=== PATIENT | female | born 1935 | race Asian ===

== ENCOUNTER 2016-12-14 15:16 | Inpatient (IN) | payer OTHER ==
[~2016-12-14] VITALS: Ht 154.9 cm; Wt 60.3 kg
[~2016-12-14 15:16] MED LIST: AMLODIPINE BESYL5 M1 PO; ATORVASTATIN CA40 M1 PO; BG MC; GLU500 PO; PLA75 PO
[2016-12-14 17:05] LABS: BASOPHIL % 0.4 % (0-2); PLATELET COUNT 275 x10^3mcL (130-400)
[2016-12-14 17:06] LABS: RED CELL DISTRIBUTION WIDTH 15.6 % (11.5-14.5)
[2016-12-14 17:17] LABS: CALCIUM 8.7 mg/dL (8.5-10.1); CARBON DIOXIDE 29.2 mmol/L (21-32); CHLORIDE SERUM 102 mmol/L (98-107); CREATININE SERUM 0.8 mg/dL (0.6-1.0); GLUCOSE SERUM 115 mg/dL (74-106); POTASSIUM SERUM 3.4 mmol/L (3.5-5.1); SODIUM SERUM 140 mmol/L (136-145)
[2016-12-14 17:21] LABS: ALBUMIN 3.7 g/dL (3.4-5.0); ALKALINE PHOSPHATASE 65 U/L (46-116); ALT/SGPT 27 U/L (14-59); AST/SGOT 25 U/L (15-37); BILIRUBIN TOTAL 0.6 mg/dL (0.20-1.00); LIPASE 262 IU/L (73-393); TOTAL PROTEIN, SERUM 8.1 g/dL (6.4-8.2)
[2016-12-14] MEDS ORDERED: MULTIVITAMIN1 SGL PO (18:40)
[2016-12-14] MEDS ORDERED: NIASPAN500 MG PO (18:41)
[2016-12-14] MEDS ORDERED: CALCIUM 600MG+D1 TAB PO (18:41)
[2016-12-14] MEDS ORDERED: LOVAZA1 G1 PO (18:41)
[2016-12-14 19:30] VITALS: BP 172/92
[2016-12-14 19:30] LABS: MAGNESIUM 2.3 mg/dL (1.8-2.4); PHOSPHOROUS 3.1 mg/dL (2.5-4.9)
[2016-12-14 19:55] LABS: FREE T4 0.95 ng/dL (0.76-1.46); FREE THYROXINE INDEX 3.2 ug/dL (1.4-4.5); T4(THYROXINE) 9.6 ug/dL (4.7-13.3)
[2016-12-14 21:47] VITALS: BP 186/88
[2016-12-14 23:28] VITALS: BP 147/74
[2016-12-15 04:50] VITALS: BP 112/89
[2016-12-15 06:31] LABS: BASOPHIL % 0.5 % (0-2); PLATELET COUNT 253 x10^3mcL (130-400)
[2016-12-15 06:37] LABS: RED CELL DISTRIBUTION WIDTH 15.4 % (11.5-14.5)
[2016-12-15 06:49] LABS: CALCIUM 8.5 mg/dL (8.5-10.1); CARBON DIOXIDE 29.4 mmol/L (21-32); CHLORIDE SERUM 106 mmol/L (98-107); CREATININE SERUM 0.7 mg/dL (0.6-1.0); GLUCOSE SERUM 96 mg/dL (74-106); POTASSIUM SERUM 3.5 mmol/L (3.5-5.1); SODIUM SERUM 142 mmol/L (136-145)
[2016-12-15 08:00] VITALS: BP 164/77
[2016-12-15 11:37] LABS: microscopic required? NO
[2016-12-15 11:43] LABS: urine erythrocyte NEGATIVE (NEGATIVE)
[2016-12-15 12:06] VITALS: BP 154/68
[2016-12-15 19:30] VITALS: BP 144/54
[2016-12-16 05:33] VITALS: BP 155/74
[2016-12-16 06:19] LABS: BASOPHIL % 0.4 % (0-2); PLATELET COUNT 249 x10^3mcL (130-400)
[2016-12-16 06:35] LABS: RED CELL DISTRIBUTION WIDTH 15.6 % (11.5-14.5)
[2016-12-16 06:50] LABS: CARBON DIOXIDE 27.2 mmol/L (21-32); CHLORIDE SERUM 111 mmol/L (98-107); CREATININE SERUM 0.9 mg/dL (0.6-1.0); GLUCOSE SERUM 101 mg/dL (74-106); POTASSIUM SERUM 3.8 mmol/L (3.5-5.1); SODIUM SERUM 148 mmol/L (136-145)
[2016-12-16 06:51] LABS: CALCIUM 8.5 mg/dL (8.5-10.1)
[2016-12-16 09:38] VITALS: BP 145/71
[2016-12-16 14:06] VITALS: BP 135/72
[2016-12-16 16:46] VITALS: BP 116/73
[2016-12-16 21:10] VITALS: BP 136/69
[2016-12-17 06:05] VITALS: BP 144/61
[2016-12-17 06:59] LABS: CALCIUM 8.4 mg/dL (8.5-10.1); CARBON DIOXIDE 24.3 mmol/L (21-32); CHLORIDE SERUM 108 mmol/L (98-107); CREATININE SERUM 0.8 mg/dL (0.6-1.0); GLUCOSE SERUM 85 mg/dL (74-106); POTASSIUM SERUM 3.3 mmol/L (3.5-5.1); SODIUM SERUM 143 mmol/L (136-145)
[2016-12-17 07:44] LABS: BASOPHIL % 0.5 % (0-2); PLATELET COUNT 223 x10^3mcL (130-400)
[2016-12-17 07:45] LABS: RED CELL DISTRIBUTION WIDTH 15.5 % (11.5-14.5)
[2016-12-17 10:00] VITALS: BP 192/82
[2016-12-17 11:15] VITALS: BP 137/71
[2016-12-17 12:58] VITALS: BP 146/64
[2016-12-17] MEDS ORDERED: MIRALAX17 GM/Dose PO (12:59)
[2016-12-17] MEDS ORDERED: METOPROLOL TART25 M1 PO (13:01)
[2016-12-17] MEDS ORDERED: ZES10 PO (13:01)
[2016-12-17 14:53] VITALS: BP 146/64
[2016-12-17] MEDS ORDERED: NOR5 PO (15:00)
== END 2016-12-17 15:50 | disposition home or self-care (01) | DRG 374 ==
LOC: ED 15:16 → DU 17:48
PROVIDERS: Emergency Medicine; Internal Medicine; ADMIT Student in an Organized Health Care Education/Training Program
PROC: 0DBN8ZX Excision of Sigmoid Colon, Via Natural or Artificial Opening Endoscopic, Diagnostic (ICD-10-PCS; principal; 2016-12-16 07:30)
DX: C18.7 Malignant neoplasm of sigmoid colon (principal); N17.0 Acute kidney failure with tubular necrosis; K64.4 Residual hemorrhoidal skin tags; E11.65 Type 2 diabetes mellitus with hyperglycemia; E78.5 Hyperlipidemia, unspecified; I10 Essential (primary) hypertension; D64.9 Anemia, unspecified; N89.9 Noninflammatory disorder of vagina, unspecified; Z68.25 Body mass index [BMI] 25.0-25.9, adult
CPT/HCPCS: 45378; 82962; 83880; 84439; C9113; J1200; J1610; J2250; J2310; J3010; J3490; J7030; Q0092